=== PATIENT | male | born 2000 | race Caucasian/White ===

== ENCOUNTER 2021-05-05 22:48 | Emergency (ER) | payer BC ==
[2021-05-06] MEDS ORDERED: LODINE CAP 300300 MG PO (02:11)
== END 2021-05-06 02:45 | disposition home or self-care (01) ==
LOC: ER1 22:48
DX: S93.601A Unspecified sprain of right foot, initial encounter (principal); W22.8XXA Striking against or struck by other objects, initial encounter; Y93.67 Activity, basketball
CPT/HCPCS: 73630; 99283